=== PATIENT | female | born 1955 | race Caucasian/White ===

== ENCOUNTER 2021-09-22 14:54 | Emergency (ER) | payer MEDICARE, OTHER ==
[2021-09-22 15:03] VITALS: BP 157/77; PULSE 79; RESP 19; TEMP 98
[2021-09-22 15:31] LABS: Basophils % (A) 1 %; Eosinophils # (A) 0.1 k/uL (0-0.7); Eosinophils % (A) 2 %; HCT 39.7 % (34.0-46.0); HGB 12.9 gm/dL (11.4-16.0); Lymphocytes # (A) 1.9 k/uL (1.0-4.8); Lymphocytes % (A) 24 %; MCH 28.8 pg (25.0-35.0); MCHC 32.5 g/dL (31.0-37.0); MCV 88.7 fL (80.0-100.0); Mean Platelet Volume 7.7; Monocytes # (A) 0.4 k/uL (0-1.0); Monocytes % (A) 5 %; Neutrophils # (A) 4.9 k/uL (1.3-7.7); Neutrophils % (A) 65 %; Platelet Count 289 k/uL (150-450); RBC 4.47 m/uL (3.80-5.40); RDW 13.6 % (11.5-15.5); WBC 7.6 k/uL (3.8-10.6)
--- NOTE | 2021-09-22 15:32 | XR ---
EXAMINATION TYPE: XR chest 2V DATE OF EXAM: 09/22/2021 COMPARISON: NONE HISTORY: Chest pain and swelling. TECHNIQUE: Frontal and lateral views of the chest are obtained. FINDINGS: Reticular interstitial prominence bilaterally. There is no focal air space opacity, pleural effusion, or pneumothorax seen. The cardiac silhouette size is within normal limits. Metallic sten t graft in the descending thoracic aorta extends to level of diaphragmatic hiatus. The osseous struct ures are demineralized. Cholecystectomy clips noted on lateral view. IMPRESSION: Chronic parenchymal changes without acute pulmonary process.
[2021-09-22 15:41] LABS: INR 0.9 (<1.2); Partial Thromboplastin Time 23.6 sec (22.0-30.0); Prothrombin Time 10.2 sec (9.0-12.0)
[2021-09-22 15:57] LABS: Albumin 4.5 g/dL (3.5-5.0); Calcium 9.8 mg/dL (8.4-10.2); Potassium 4.5 mmol/L (3.5-5.1); Total Bilirubin 0.3 mg/dL (0.2-1.3); Total Protein 7.7 g/dL (6.3-8.2)
[2021-09-22] MEDS ORDERED: ASPIRIN 81 MG PO STA (17:04)
[2021-09-22] MEDS ORDERED: LORazepam 0.5 MG TAB PO STA (17:05)
--- NOTE | 2021-09-22 19:18 | ED ---
General Adult HPI - General Chief complaint: Chest Pain Stated complaint: Chest Pain,leg swelling Time Seen by Provider: 09/22/21 16:12 Source: patient, RN notes reviewed, old records reviewed Mode of arrival: ambulatory Limitations: no limitations - History of Present Illness Initial comments: Patient is a 66-year-old female with past medical history remarkable for anxiety, stress, prior IA with stents, diabetes, hypertension, AAA who presents emergency Department with mild chest pain. She states that it feels like anxiety related chest pain. [place] has been under more stress lately. However due to her cardiac history and not being able to follow up with a PCP for at least 2 or 3 weeks, she presented to the emergency part of her evaluation. She states the chest pain is on again off again for the last week or so. Describes it as substernal. Describes it as achy. Is not radiate. It self resolves typically. This improved with some Ativan. Denies any fevers, chills, cough. Denies any orthopnea, history of blood clots, PND. Endorses mild exertional shortness of breath which is chronic. She also has chronic mild lower extremity edema of the ankles. She has no other acute complaints at this time. She is concerned over possible cardiac etiology for her chest pain, but does acknowledge that could be related to stress. Patient was evaluated following being placed in a room. - Related Data Home Medications Medication Instructions Recorded Confirmed Aspirin 81 mg PO DAILY 09/22/21 09/22/21 Carvedilol [Coreg] 25 mg PO DAILY 09/22/21 09/22/21 Carvedilol [Coreg] 37.5 mg PO HS 09/22/21 09/22/21 Chlorthalidone 25 mg PO DAILY 09/22/21 09/22/21 Cholecalciferol [Vitamin D3 (125 125 mcg PO DAILY 09/22/21 09/22/21 Mcg = 5000 Iu)] Cinnamon Bark [Cinnamon] 1,000 mg PO DAILY 09/22/21 09/22/21 Clopidogrel Bisulfate [Plavix] 75 mg PO W/LUNCH 09/22/21 09/22/21 Glimepiride [Amaryl] 4 mg PO DAILY 09/22/21 09/22/21 Insulin Glargine,Hum.rec.anlog 32 unit SQ W/SUPPER 09/22/21 09/22/21 [Basaglar Johnpen U-100] LORazepam [Ativan] 1 mg PO TID PRN 09/22/21 09/22/21 Levothyroxine Sodium [Synthroid] 25 mcg PO DAILY 09/22/21 09/22/21 Magnesium 500 mg PO DAILY 09/22/21 09/22/21 Multivit-Min/FA/Lycopen/Lutein 1 tab PO DAILY 09/22/21 09/22/21 [Centrum Silver Tablet] NIFEdipine [NIFEdipine ER] 90 mg PO DAILY 09/22/21 09/22/21 Nystatin [Nystop] 1 applic TOPICAL TID PRN 09/22/21 09/22/21 Olmesartan Medoxomil [Benicar] 40 mg PO W/LUNCH 09/22/21 09/22/21 Pantoprazole Sodium 40 mg PO W/LUNCH 09/22/21 09/22/21 Potassium Gluconate [Potassium 99 mg PO DAILY 09/22/21 09/22/21 Gluconate ER] Rosuvastatin [Crestor] 20 mg PO DAILY 09/22/21 09/22/21 Zinc 50 mg PO DAILY 09/22/21 09/22/21 metFORMIN HCL ER [Glucophage XR] 1,000 mg PO BID 09/22/21 09/22/21 Allergies Allergy/AdvReac Type Severity Reaction Status Date / Time cephalexin [From Keflex] Allergy Swelling Verified 09/22/21 17:27 diltiazem Allergy Swelling Verified 09/22/21 17:27 insulin glargine Allergy Swelling Verified 09/22/21 17:27 [From Soliqua 100/33] isosorbide [From Imdur] Allergy Swelling Verified 09/22/21 17:27 latex Allergy Swelling Verified 09/22/21 17:27 lixisenatide Allergy Swelling Verified 09/22/21 17:27 [From Soliqua 100/33] minoxidil Allergy Swelling Verified 09/22/21 17:27 prasugrel [From Effient] Allergy Swelling Verified 09/22/21 17:27 Review of Systems ROS Statement: Those systems with pertinent positive or pertinent negative responses have been documented in the HPI. Review of Systems: CONST: Denies fever EYES: Denies blurry vision ENT: Denies nasal congestion C/V: Endorses chest pain RESP: Denies shortness of breath GI: Denies abdominal pain : Denies dysuria SKIN: Denies rash. MSK: Denies joint pain. NEURO: Denies headache ROS Other: All systems not noted in ROS Statement are negative. Past Medical History Past Medical History: Diabetes Mellitus, Hyperlipidemia, Hypertension, Myocardial Infarction (IA) Additional Past Medical History / Comment(s): AAA History of Any Multi-Drug Resistant Organisms: None Reported Past Surgical History: Cholecystectomy, Heart Catheterization With Stent, Hysterectomy Smoking Status: Former smoker Past Alcohol Use History: None Reported Past Drug Use History: None Reported General Exam - General Exam Comments Initial Comments: General: Appears in no acute distress. HEAD: Normal with no signs of head trauma. EYES: PERRLA, EOMI, conjunctiva normal, no discharge. ENT: Hearing grossly intact, normal oropharynx. RESPIRATORY: Clear breath sounds bilaterally. No wheezes, rales, or rhonchi. C/V: Regular rate and rhythm. S1 and S2 auscultated, mild 1+ pitting edema at the ankles bilaterally. Peripheral pulses 2+ and intact throughout ABD: Abd is soft, nontender, nondistended EXT: Normal range of motion, no obvious deformity SKIN: No rashes or lesions observed on exposed skin. NEURO: Alert and oriented 4. No focal deficits. Limitations: no limitations Course Vital Signs 09/22/21 14:58 Temperature 98.0 F Pulse Rate 79 Respiratory 19 Rate Blood Pressure 157/77 O2 Sat by Pulse 94 L Oximetry Medical Decision Making - Medical Decision Making Based on the patient's presentation and physical exam, I'm concerned for possible cardiac etiology for her current symptoms. Anxiety is also a po ssibility with her history. Workup was already started including cardiac workup in triage. This includes an EKG, chest x-ray, labs. Initial labs were remarkable for negative troponin. Chest x-ray shows no acute cardiopulmonary process. EKG shows no acute ischemic changes. When I evaluated the patient, she had normal and stable vital signs. I did discuss with her that with her cardiac history, she has a slightly increased risk for cardiac cause for his symptoms, however it has been multiple days with these symptoms. It is been 2- 1/2 hours since her initial troponin level, we will obtain a second troponin level and discharge based on this. She was in agreement this plan. Also provide her with a low dose Ativan. Chest pain is nearly resolved at this time. Repeat troponin is negative. On reevaluation come patient remains asymptomatic and chest pain is resolved. Heart score is low at 3. I do believe it is safe for the patient be discharged home with follow-up. I'll provide her with contact info for cardiology. She has a PCP appointment in the coming weeks. She was in agreement this plan. I instructed the patient to follow up with their PCP in the next 3 days. I provided contact information for follow up with cardiology. I explained that the patient should return to the emergency department if they experience any worsening symptoms. Strict return precautions were discussed with the patient. The patient expressed understanding of these instructions. I answered all questions that the patient had. The patient was discharged home in good condition with their prescriptions and follow up information. - Lab Data Result diagrams: 09/22/21 15:12 09/22/21 15:12 Lab Results 09/22/21 09/22/21 09/22/21 Range/Units 15:12 15:12 15:12 WBC 7.6 (3.8-10.6) k/uL RBC 4.47 (3.80-5.40) m/uL Hgb 12.9 (11.4-16.0) gm/dL Hct 39.7 (34.0-46.0) % MCV 88.7 (80.0-100.0) fL MCH 28.8 (25.0-35.0) pg MCHC 32.5 (31.0-37.0) g/dL RDW 13.6 (11.5-15.5) % Plt Count 289 (150-450) k/uL MPV 7.7 Neutrophils % 65 % Lymphocytes % 24 % Monocytes % 5 % Eosinophils % 2 % Basophils % 1 % Neutrophils # 4.9 (1.3-7.7) k/uL Lymphocytes # 1.9 (1.0-4.8) k/uL Monocytes # 0.4 (0-1.0) k/uL Eosinophils # 0.1 (0-0.7) k/uL Basophils # 0.0 (0-0.2) k/uL PT 10.2 (9.0-12.0) sec INR 0.9 (<1.2) APTT 23.6 (22.0-30.0) sec Sodium 137 (137-145) mmol/L Potassium 4.5 (3.5-5.1) mmol/L Chloride 98 (98-107) mmol/L Carbon Dioxide 28 (22-30) mmol/L Anion Gap 11 mmol/L BUN 25 H (7-17) mg/dL Creatinine 0.91 (0.52-1.04) mg/dL Est GFR (CKD-EPI)AfAm 76 (>60 ml/min/1.73 sqM) Est GFR (CKD-EPI)NonAf 66 (>60 ml/min/1.73 sqM) Glucose 183 H (74-99) mg/dL Calcium 9.8 (8.4-10.2) mg/dL Magnesium 2.0 (1.6-2.3) mg/dL Total Bilirubin 0.3 (0.2-1.3) mg/dL AST 23 (14-36) U/L ALT 19 (4-34) U/L Alkaline Phosphatase 72 (38-126) U/L Troponin I (0.000-0.034) ng/mL Total Protein 7.7 (6.3-8.2) g/dL Albumin 4.5 (3.5-5.0) g/dL 09/22/21 09/22/21 Range/Units 15:12 18:30 WBC (3.8-10.6) k/uL RBC (3.80-5.40) m/uL Hgb (11.4-16.0) gm/dL Hct (34.0-46.0) % MCV (80.0-100.0) fL MCH (25.0-35.0) pg MCHC (31.0-37.0) g/dL RDW (11.5-15.5) % Plt Count (150-450) k/uL MPV Neutrophils % % Lymphocytes % % Monocytes % % Eosinophils % % Basophils % % Neutrophils # (1.3-7.7) k/uL Lymphocytes # (1.0-4.8) k/uL Monocytes # (0-1.0) k/uL Eosinophils # (0-0.7) k/uL Basophils # (0-0.2) k/uL PT (9.0-12.0) sec INR (<1.2) APTT (22.0-30.0) sec Sodium (137-145) mmol/L Potassium (3.5-5.1) mmol/L Chloride (98-107) mmol/L Carbon Dioxide (22-30) mmol/L Anion Gap mmol/L BUN (7-17) mg/dL Creatinine (0.52-1.04) mg/dL Est GFR (CKD-EPI)AfAm (>60 ml/min/1.73 sqM) Est GFR (CKD-EPI)NonAf (>60 ml/min/1.73 sqM) Glucose (74-99) mg/dL Calcium (8.4-10.2) mg/dL Magnesium (1.6-2.3) mg/dL Total Bilirubin (0.2-1.3) mg/dL AST (14-36) U/L ALT (4-34) U/L Alkaline Phosphatase (38-126) U/L Troponin I <0.012 <0.012 (0.000-0.034) ng/mL Total Protein (6.3-8.2) g/dL Albumin (3.5-5.0) g/dL - EKG Data -: EKG Interpreted by Me EKG Comments: 12-lead Electrocardiogram Interpretation Note EKG was reviewed and interpreted by myself. 12-lead ECG performed at 1508 is interpreted by me as revealing normal sinus rhythm at a rate of 80 beats per minute. [place] is normal. MI interval is 166 seconds, QRS duration is 80 ms, QTc is 447 ms.. There were no ST or T wave abnormalities to suggest myocardial ischemia or injury. R wave progression across the precordium was satisfactory. By my interpretation this EKG is non-diagnostic for acute ischemia. Disposition Clinical Impression: Chest pain of unknown etiology Disposition: HOME SELF-CARE Condition: Good Instructions (If sedation given, give patient instructions): Chest Pain (ED) Is patient prescribed a controlled substance at d/c from ED?: No Referrals: None,Stated [Primary Care Provider] - 1-2 days Harish Hope MD [STAFF PHYSICIAN] - 1-2 days
== END 2021-09-22 20:10 | disposition home or self-care (01) ==
LOC: EC 14:54
DX: R07.89 Other chest pain (principal); E11.9 Type 2 diabetes mellitus without complications; I10 Essential (primary) hypertension; I25.2 Old myocardial infarction; E78.5 Hyperlipidemia, unspecified; Z87.891 Personal history of nicotine dependence; Z79.4 Long term (current) use of insulin; Z79.84 Long term (current) use of oral hypoglycemic drugs; Z79.890 Hormone replacement therapy; Z79.82 Long term (current) use of aspirin; Z79.899 Other long term (current) drug therapy
CPT/HCPCS: 36415; 71046; 80053; 83735; 84484; 85025; 85610; 85730; 93005; 99285

== ENCOUNTER → 2021-12-18 | Outpatient (CLI) | payer MEDICARE ==
--- NOTE | 2021-12-18 17:18 | CT ---
EXAMINATION TYPE: CT angio thor/abd pel aorta DATE OF EXAM: 12/18/2021 COMPARISON: None HISTORY: h/o abd aorta stent f/u CT DLP: 2391 mGycm Automated exposure control for dose reduction was used. CONTRAST: Performed with IV Contrast, patient injected with 160 mL of Isovue 370. Images obtained from the thoracic inlet to the floor of the pelvis without and with IV contrast. There is some mild interstitial infiltrate right upper lobe. Heart size is normal. There is no perica rdial effusion. There is no mediastinal adenopathy. There are no hilar masses. Thoracic aorta is athe romatous. There is no aneurysm or dissection. There is no evidence of filling defect in the pulmonary arteries. There is apparent stent in the lower thoracic aorta. There is arterial flow in the celiac artery and superior mesenteric artery. There is arterial flow in both renal arteries. There is bilate ral arterial flow in the iliac and femoral arteries. There is atherosclerotic plaque formation and va riable luminal narrowing of the iliac arteries. There is no retroperitoneal adenopathy. There is no e vidence of arterial aneurysm or dissection. There are clips from cholecystectomy. Liver and spleen are intact. Stomach is intact. There is no daly creatic mass. The bile ducts are not dilated. There is no adrenal mass. There is normal contrast opacification of the kidneys. There is no hydronephrosis. Ureters are not di lated. There is no retroperitoneal adenopathy. There is 2.5 cm cortical cyst posterior right kidney. Appendix is normal. There is no mesenteric edema. There is no ascites or free air. There is no bowel obstruction. The contrast filled urinary bladder appears intact. There are some prominent veins in th e left hepatic lobe of the liver. This is probably vascular malformation. Thoracic and lumbar spine appear intact. Sternum is intact. The bony pelvis is intact. Hip joints are intact. IMPRESSION: There is lower thoracic aortic endograft in the aorta measures up to 2.8 cm. No evidence of leakage. No aneurysm or dissection. Atherosclerotic vascular disease. No definite sign of hemodynamic stenosis . No evidence of pulmonary embolism. No suspicious pulmonary mass.
== END | disposition home or self-care (01) ==
LOC: RADCTMAIN 15:21
PROVIDERS: ATTEND Surgery
DX: Z48.812 Encounter for surgical aftercare following surgery on the circulatory system (principal); I70.0 Atherosclerosis of aorta; Z95.828 Presence of other vascular implants and grafts
CPT/HCPCS: 82565; 84520; 71275; 36415; 74174; Q9967

== ENCOUNTER → 2023-01-11 | Outpatient (CLI) | payer MEDICARE ==
--- NOTE | 2023-01-11 15:39 | CT ---
EXAMINATION TYPE: CT angio chest CT DLP: 870.8 mGycm, Automated exposure control for dose reduction was used. DATE OF EXAM: 01/11/2023 3:08 PM COMPARISON: 12/18/2021. CLINICAL INDICATION:Female, 67 years old with history of I71.2 thoracic aortic aneurysm; h/o thoracic aneurysm TECHNIQUE/CONTRAST: CTA scan of the thorax is performed with IV Contrast, patient injected with 80 mL of Isovue 370, pulm onary embolism protocol. MIP images are created and reviewed these are created on a separate worksta tion.. FINDINGS: Lungs/Pleura: * Right upper lobe groundglass opacity measuring up to 15 mm series 6 image 46 * Right middle lobe groundglass opacity series 6 image 84 measuring 9 mm, * Right upper lobe solid pulmonary nodule anterior to the major fissure measuring 5 mm with some per ipheral ground glass opacities. * Left upper lobe groundglass opacity measuring 11 mm more laterally series 6 image 73, * Left lower lobe groundglass opacity superior segment of the measuring 11 mm series 6 image 70. No focal consolidation, pneumothorax or pleural effusion. Airway: Large airways are patent. Heart: Heart is within normal limits for size. Moderate coronary artery atherosclerosis. Vasculature: No evidence of aortic aneurysm. Descending thoracic aorta stent graft appears similar to prior imaging.. Noncontrast imaging demonstrates no evidence for intramural hematoma. The origins of the major vessels of the aortic arch are patent. The visualized origins of the upper abdominal aorta are patent. Limited evaluation of the pulmonary arterial vasculature does not demonstrates filling d efect to suggest pulmonary embolism. Mediastinum: No gross evidence of adenopathy. Musculoskeletal: No acute osseous abnormalities Soft Tissues: Unremarkable. Lower neck: No significant findings. Upper Abdomen: The gallbladder surgically absent. There is atherosclerosis of the arterial vasculatur e. Stable left adrenal nodule measuring up to 1.1 cm. IMPRESSION: 1. No evidence for new aortic aneurysm, descending thoracic aorta aneurysmal dilation with endograft in similar position and in appropriate position. Scattered pulmonary ground glass opacities and nodu lar changes similar to more conspicuous. Short-term follow-up CT chest in 6 months to ensure stabilit y is recommended. 2. Stable left adrenal nodule measuring up to 1.1 cm which is indeterminate but likely represents be nign lipid rich adrenal adenoma.
== END | disposition home or self-care (01) ==
LOC: RADCTMAIN 13:45
PROVIDERS: ATTEND Surgery
DX: I71.23 Aneurysm of the descending thoracic aorta, without rupture (principal); E27.8 Other specified disorders of adrenal gland; R91.8 Other nonspecific abnormal finding of lung field
CPT/HCPCS: 82565; 84520; 71275; 36415; Q9967

== ENCOUNTER → 2024-01-05 | Outpatient (CLI) | payer MEDICARE ==
--- NOTE | 2024-01-05 11:42 | CT ---
Exam: CT Chest without contrast. Date: 01/05/2024. Comparison: 01/11/2023. History: Lung nodules. Technique: CT examination of the chest was performed without contrast. Coronal and sagittal reformats were performed. CT dose lowering techniques were used, to include: automated exposure control, adjus tment for patient size, and/or use of iterative reconstruction. FINDINGS: Mediastinum and Kaitlin: There is no axillary, mediastinal or hilar lymphadenopathy. Pleural and Pericardial spaces: There are no pleural or pericardial effusions. Upper Abdomen: Partially visualized cyst in the right kidney. The gallbladder is absent. The visualiz ed upper abdomen otherwise appears unremarkable. Cardiovascular: There appears to the endograft within the distal thoracic aorta. Significant vascular calcification is otherwise seen. There is severe diffuse coronary artery calcifications. Lung Parenchyma and Airways: 1.2 cm ground glass nodule in the right upper lobe on series 4 image 12 is unchanged. 2.3 x 1.8 cm groundglass opacity within the right upper lobe on series 4 image 18 previ ously measured 2.1 x 1.5 cm. Groundglass area of nodularity within the right upper lobe measuring 1.6 cm on series 4 image 20 is not significant change. Several additional groundglass nodules are seen t hroughout the right lung which are also not significantly changed. There are a few scattered groundgl ass areas of nodularity seen throughout the left lung which are similar to the previous examination. Bones: No fracture or aggressive osseous lesion. IMPRESSION: 1. Similar appearance to slightly larger appearance to groundglass nodules as above. Follow-up in one year is recommended. 2. Severe coronary artery calcifications.
== END | disposition home or self-care (01) ==
LOC: RADCTMAIN 10:50
PROVIDERS: ATTEND Internal Medicine
DX: I25.10 Atherosclerotic heart disease of native coronary artery without angina pectoris (principal); R91.8 Other nonspecific abnormal finding of lung field; R91.1 Solitary pulmonary nodule
CPT/HCPCS: 71250

== ENCOUNTER → 2024-07-16 | Outpatient (CLI) | payer MEDICARE ==
--- NOTE | 2024-07-16 12:56 | CT ---
EXAMINATION TYPE: CT chest wo con DATE OF EXAM: 07/16/2024 COMPARISON: 01/05/2024 and 01/11/2023 HISTORY: 68-year-old female R9 1.8 lung nodule TECHNIQUE: Contiguous axial scanning of the chest without IV contrast. Coronal/sagittal reconstructio ns performed. CT DLP: 652mGycm. Automatic exposure control utilized for a dose reduction. FINDINGS: The heart is normal size without pericardial effusion. However, there is extensive three-vessel coron jesus artery calcifications present. Moderate atherosclerotic arch calcifications and conventional arch vessel branching anatomy. Mild cheryl g segment aneurysm mid to distal descending thoracic aorta to 3.2 cm, unchanged. An endovascular sten t graft is present here. No thoracic lymphadenopathy by CT size criteria. Redemonstrated are multiple scattered patches of groundglass change. The largest continues to measure 2.4 cm of the right midlung. Given relative stability for a year and a half, consider annual surveil charbel follow-up. No new pulmonary nodules. No new consolidation or pleural effusion. Tiny hiatal hernia. There is a nodule of the left adrenal gland measuring 1.1 cm which is unchanged. Cholecystectomy clips. No osseous destructive process. IMPRESSION: 1. Multiple scattered groundglass patches in the lungs, largest measuring 2.4 cm, unchanged for 1.5 y ears. Consider ongoing annual surveillance follow-up. 2. Extensive three-vessel coronary artery calcifications. 3. Descending thoracic aorta endovascular stent graft with stable mild diffuse aneurysm up to 3.2 cm. 4. Tiny hiatal hernia and stable 1.1 cm left adrenal gland nodule likely adrenal adenoma. [facility], , 07/16/2024 12:53 PM
== END | disposition home or self-care (01) ==
LOC: RADCTMAIN 11:30
PROVIDERS: ATTEND Internal Medicine
DX: R91.8 Other nonspecific abnormal finding of lung field
CPT/HCPCS: 71250

== ENCOUNTER → 2024-10-22 | Outpatient (CLI) | payer MEDICARE ==
[2024-10-22 12:33] LABS: African American GFR (CKD) 62 (>60 ml/min/1.73 sqM); Blood Urea Nitrogen 22 mg/dL (7-17); Non-African American GFR(CKD) 54 (>60 ml/min/1.73 sqM)
--- NOTE | 2024-10-22 14:48 | CT ---
EXAMINATION TYPE: CT angio thor/abd pel aorta CT DLP: 3740 mGycm, Automated exposure control for dose reduction was used. DATE OF EXAM: 10/22/2024 1:42 PM COMPARISON: CT chest 07/16/2024, 01/05/2024, CTA chest 01/11/2023, CTA thoracoabdominal pelvis aorta 12/18. CLINICAL INDICATION:Female, 69 years old with history of I71.40 ABDOMINAL AORTIC ANEURYSM, WITHOUT RU PTURE,; PHH, F/U ANEURYSM AND MULTIPLE STENTS TECHNIQUE: Dissection protocol: Multiple axial CT images of the chest, abdomen, and pelvis were obtai elmer prior and to the administration of IV contrast. 3-D reformats and maximum intensity projection fo rmat were performed on a separate workstation. Then the abdomen was scanned after administration of 8 0 cc of Isovue 370 IV contrast. FINDINGS: ARTERIAL VASCULATURE: Postsurgical changes of the descending thoracic aorta from stent graft to the l evel of the hiatus. No evidence for endoleak. The descending thoracic aorta measures up to 3.1 cm at the level of the stent. The ascending thoracic aorta measures up to 3.0 cm. Previously 3.0 cm when me asured with similar technique. The aortic root measures up to 2.9 cm. The abdominal aorta measures up to 2.1 cm. Atherosclerotic calcification of the aorta and its branches. There is no evidence of aort ic dissection, aneurysm or acute aortic injury. Great arch vessels patent and normal in course withou t significant stenosis. The celiac axis, SMA, DWAYNE, and bilateral single renal arteries are patent wit h only mild stenosis at the origin of the celiac axis, SMA, and right renal artery secondary to calci fic plaque. The common iliac arteries, internal and external iliac arteries and bilateral common femo ral arteries are patent. The visualized portions of the superficial and deep femoral arteries bilater ally are patent. PULMONARY ARTERIAL VASCULATURE: Normal caliber. No evidence of filling defect to suggest pulmonary em bolus. VENOUS SYSTEM: Unremarkable. Lungs/pleura: No pleural effusion, pneumothorax, or focal consolidation. Overall stable appearance of scattered groundglass nodular opacities from prior examination. Heart: Mildly enlarged. No pericardial effusion. Moderate coronary artery calcifications. Aortic valv ular and mitral anulus calcifications. Mediastinum: No gross evidence of adenopathy. Lower Neck: No significant findings. Abdomen: Liver: Similar prominent curvilinear enhancement within the wedge-shaped region of the left lateral h epatic lobe likely representing a vascular malformation. Gallbladder and Bile ducts: The gallbladder is surgically absent. No biliary ductal dilatation. Pancreas: Unremarkable. Spleen: Unremarkable. Adrenal glands: Right adrenal glands unremarkable. Stable benign tiny left adrenal gland 1.2 cm nodul e. Kidneys and Ureters: No hydronephrosis or renal calculi. Right renal 2.6 cm cyst.. Stomach and Bowel: Scattered distal colonic diverticulosis without evidence for acute diverticulitis. The appendix is within normal limits. Small hiatal hernia. No evidence of bowel obstruction. Peritoneum: No evidence of pneumoperitoneum, free fluid, or adenopathy. Bladder: Under distended, limiting evaluation. Reproductive: Postsurgical changes from hysterectomy. Abdominal wall/soft tissues: Unremarkable. Musculoskeletal: The osseous structures appear intact. IMPRESSION: 1. Postsurgical changes from lower thoracic aortic endograft measuring up to 3.0 cm. This is stable when measured with similar technique. No evidence for intramural hematoma, dissection, or endoleak. 2. Overall stable groundglass nodular opacities within the lungs. Continued ongoing surveillance is recommended. [facility], , 10/22/2024 2:46 PM
== END | disposition home or self-care (01) ==
LOC: RADCTMAIN 11:44
PROVIDERS: ATTEND Internal Medicine Cardiovascular Disease
DX: I71.40 Abdominal aortic aneurysm, without rupture, unspecified (principal); I71.20 Thoracic aortic aneurysm, without rupture, unspecified
CPT/HCPCS: 82565; 84520; 71275; 36415; 74174; Q9967

== ENCOUNTER → 2024-12-27 | Outpatient (CLI) | payer MEDICARE ==
[2024-12-27 15:40] LABS: ALT 16 U/L (8-44); AST 20 U/L (13-35); Albumin 4.4 g/dL (3.8-4.9); Albumin/Globulin Ratio 1.63 Ratio (1.60-3.17); Alkaline Phosphatase 72 U/L (41-126); Blood Urea Nitrogen 24.8 mg/dL (9.0-27.0); Calcium 9.4 mg/dL (8.7-10.3); Carbon Dioxide 27.1 mmol/L (21.6-31.8); Chloride 99 mmol/L (96-109); Globulin 2.7 g/dL (1.6-3.3); Glucose 161 mg/dL (70-110); Potassium 4.2 mmol/L (3.5-5.5); Sodium 138 mmol/L (135-145); T4, Free (Free Thyroxine) 1.28 ng/dL (0.80-1.80); Total Bilirubin 0.2 mg/dL (0.3-1.2); Total Protein 7.1 g/dL (6.2-8.2)
== END | disposition home or self-care (01) ==
LOC: LABWHC1 11:00
PROVIDERS: ATTEND Family Medicine
DX: I12.9 Hypertensive chronic kidney disease with stage 1 through stage 4 chronic kidney disease, or unspecified chronic kidney disease (principal); E03.9 Hypothyroidism, unspecified; N18.30 Chronic kidney disease, stage 3 unspecified
CPT/HCPCS: 36415; 80053; 82306; 83735; 84439; 84443